=== PATIENT | female | born 1945 | race Two or more races ===

== ENCOUNTER 2016-08-30 07:19 | Emergency (ER) | payer OTHER, MEDICAID ==
[~2016-08-30] VITALS: Ht 160 cm; Wt 49.9 kg
[2016-08-30 07:35] VITALS: BP 111/60
== END 2016-08-30 08:24 | disposition home or self-care (01) ==
LOC: ER 07:19
DX: J18.9 Pneumonia, unspecified organism (principal); J20.9 Acute bronchitis, unspecified; F17.210 Nicotine dependence, cigarettes, uncomplicated
CPT/HCPCS: 71020

== ENCOUNTER 2019-03-07 15:46 | Emergency (ER) | payer MEDICAID, OTHER ==
[~2019-03-07] VITALS: Ht 160 cm; Wt 52.2 kg
[2019-03-07 16:52] LABS: Urine Bacteria NONE SEEN /hpf (None Seen); Urine Blood Negative /uL (Negative); Urine Mucus FEW (None Seen); Urine Specific Gravity 1.014 (1.001-1.035); Urine WBC 1 /hpf (0 - 5)
[2019-03-07] MEDS ORDERED: AZITHROMYCIN 500MG/ 250ML 250 ML IV ONE (17:15)
[2019-03-07] MEDS ORDERED: cefTRIAXone 1GM/50ML D5W 50 ML IV ONE (17:15)
[2019-03-07 18:19] LABS: Basophils # (auto) 0 uL; Basophils % (auto) 0.6 % (0.0-2.0); Eosinophils # (auto) 0.1 uL; Eosinophils % (auto) 1.5 % (0.0-7.0); Hematocrit 35.7 % (36.0-46.0); Hemoglobin 12.4 g/dL (12.2-16.2); Lymphocytes # (auto) 1.3 uL; Lymphocytes % (auto) 19.5 % (10.0-50.0); Mean Corpuscular Hemoglobin 32.4 pg (28.0-32.0); Mean Corpuscular Hgb Conc. 34.6 g/dL (32.0-36.0); Mean Corpuscular Volume 93.6 fL (80.0-100.0); Monocytes # (auto) 0.6 uL; Neutrophils # (auto) 4.5 uL; Neutrophils % (auto) 69.4 % (37.0-80.0); Nucleated Red Blood Cells % 0.1 %; Platelet Count (auto) 315 10^3/uL (140-450); Red Blood Cells 3.81 10^6/uL (4.0-5.20); Red Cell Distribution Width 12.2 % (11.8-14.3); White Blood Cell 6.4 10^3/uL (4.4-10.8)
[2019-03-07 18:36] LABS: Albumin 3.8 g/dL (3.4-5.0); Calcium 9.8 mg/dL (8.5-10.1); Potassium 4.2 mmol/L (3.5-5.1)
[2019-03-07 18:40] LABS: BUN/Creatinine Ratio 16.7; Bilirubin, Total 0.5 mg/dL (0.2-1.0); Total Protein 7.5 g/dL (6.4-8.2)
[2019-03-07] MEDS ORDERED: traMADol HCL 50 MG TAB PO ONE (21:45)
[2019-03-07 23:45] VITALS: BP 112/44
== END 2019-03-08 00:13 | disposition home or self-care (01) ==
LOC: ER 15:46
DX: J18.9 Pneumonia, unspecified organism (principal); R06.02 Shortness of breath
CPT/HCPCS: 36415; 71046; 80053; 81001; 83605; 84484; 85025; 87040; 96365; 96366; 96367; 99284; J0456; J0696

== ENCOUNTER 2021-06-21 05:10 | Emergency (ER) | payer OTHER ==
[~2021-06-21] VITALS: Ht 157.5 cm; Wt 60.8 kg
[2021-06-21] MEDS ORDERED: ONDANSETRON ODT 4 MG TAB PO ONE (12:00)
[2021-06-21] MEDS ORDERED: MORPHINE SULFATE INJECTION 2 MG/ML SYRG IM ONE (12:00)
[2021-06-21 12:12] VITALS: BP 140/98
[2021-06-21] MEDS ORDERED: ACE3T PO (12:13)
== END 2021-06-21 13:43 | disposition home or self-care (01) ==
LOC: ER 05:10
DX: M54.42 Lumbago with sciatica, left side (principal); Z79.899 Other long term (current) drug therapy
CPT/HCPCS: 72100; 93005; 96372; 99285; J2270; Q0162